=== PATIENT | male | born 1960 | race Caucasian/White ===

== ENCOUNTER → 2016-11-03 | Outpatient (CLI) | payer MEDICARE, OTHER ==
--- NOTE | 2016-11-03 12:29 | FL ---
EXAMINATION TYPE: FL barium swallow w video DATE OF EXAM: 11/03/2016 11:27 AM COMPARISON: NONE HISTORY: Cough, pneumonia. The patient was evaluated in the lateral projection during real-time fluoroscopy, during ingestion of barium mixed with solids and liquids. Some residuals noted at the level of the vallecula. No aspirat ion or laryngeal penetration. See report from speech pathology.
== END | disposition home or self-care (01) ==
LOC: RADFLMAIN 10:54
PROVIDERS: ATTEND Family Medicine
DX: R05 Cough (principal); J31.0 Chronic rhinitis
CPT/HCPCS: 74230

== ENCOUNTER 2017-07-10 16:23 | Emergency (ER) | payer MEDICARE, OTHER ==
[2017-07-10 16:38] VITALS: TEMP 98.5
--- NOTE | 2017-07-10 17:57 | ED ---
Nausea/Vomiting/Diarrhea HPI - General Chief complaint: Nausea/Vomiting/Diarrhea Stated complaint: Vomiting After Anesthesia Time Seen by Provider: 07/10/17 17:12 Source: Caregiver Mode of arrival: wheelchair - History of Present Illness Initial comments: 56-year-old male patient with past history significant for developmental disability, diabetes, and high blood pressure is brought in by caregiver for evaluation of frequent vomiting since having a dental procedure done last week. Patient lives in an assisted living facility. She states that he had gum surgery related to an infection, and was placed on ibuprofen and Cleocin for pain and antibiotic coverage. He states that over the first few days he had a lot of vomiting. She states that the vomiting has been intermittent since then , and has had days where he has been vomit free. She states that he has been doing a soft liquid diet. She states that he will not let them look in his mouth. States that he is also been coughing. She states that his primary physician has been in to evaluate him, did do a chest x-ray and found a new onset acute congestive heart failure. States that they did start him on Lasix. She states that today and yesterday he has been refusing to eat. She states that he has not urinated since this morning. Says that he did have some constipation however did have a large bowel movement yesterday morning. She denies any fever or chills. States his oxygen levels at the facility have been 97 or above. States his blood sugar has been normal for him, some elevation around dinner time. He has not had any labs done. States that otherwise he is behaving normally. Unable to perform complete review of systems due to patient being non-verbal. - Related Data Home Medications Medication Instructions Recorded Confirmed Clotrimazole Cream [Lotrimin Cream] 1 applic TOPICAL HS 07/10/17 07/10/17 Fexofenadine HCl [Ladonna Allergy] 180 mg PO HS 07/10/17 07/10/17 Furosemide [Lasix] 20 mg PO DAILY 07/10/17 07/10/17 Insulin Aspart [NovoLOG] 6 unit SQ AC-LUNCH 07/10/17 07/10/17 Insulin Aspart [NovoLOG] 7 unit SQ AC-BRKFST 07/10/17 07/10/17 Insulin Aspart [NovoLOG] 10 unit SQ AC-SUPPER 07/10/17 07/10/17 Insulin Glargine [Lantus] 8 unit SQ HS 07/10/17 07/10/17 Losartan Potassium [Cozaar] 100 mg PO HS 07/10/17 07/10/17 Ondansetron Odt [Zofran Odt] 4 mg PO Q8H PRN 07/10/17 07/10/17 tiZANidine HCL [Zanaflex] 4 mg PO Q6H PRN 07/10/17 07/10/17 Previous Rx's Medication Instructions Recorded Bisacodyl [Dulcolax] 10 mg RECTAL HS #3 supp 07/10/17 Polyethylene Glycol 3350 [Miralax] 17 gm PO DAILY #527 gm 07/10/17 Allergies Allergy/AdvReac Type Severity Reaction Status Date / Time ergocalciferol (vitamin D2) Allergy Unknown Verified 07/10/17 17:41 [From Vitamin D2] penicillin V [From Veetids] Allergy Unknown Verified 07/10/17 17:41 Review of Systems ROS Statement: Those systems with pertinent positive or pertinent negative responses have been documented in the HPI. ROS Other: All systems not noted in ROS Statement are negative. Past Medical History Past Medical History: Heart Failure, Diabetes Mellitus, Hypertension History of Any Multi-Drug Resistant Organisms: None Reported Past Psychological History: No Psychological Hx Reported Smoking Status: Never smoker Past Alcohol Use History: None Reported Past Drug Use History: None Reported General Exam General appearance: alert, in no apparent distress, other (This is a well- developed, well-nourished adult male patient, does not appear to be in any acute distress. Vital signs upon presentation are temperature 98.5F, pulse 90 , respirations 16, blood pressure 170/70, pulse ox 93% on room air.) Eye exam: Present: normal appearance, PERRL, EOMI. Absent: scleral icterus, conjunctival injection, periorbital swelling ENT exam: Present: normal exam, normal oropharynx, mucous membranes moist Respiratory exam: Present: normal lung sounds bilaterally. Absent: respiratory distress, wheezes, rales, rhonchi, stridor Cardiovascular Exam: Present: regular rate, normal rhythm, normal heart sounds. Absent: systolic murmur, diastolic murmur, rubs, gallop, clicks GI/Abdominal exam: Present: soft, normal bowel sounds. Absent: distended, tenderness, guarding, rebound, rigid Extremities exam: Present: normal inspection, full ROM, normal capillary refill , pedal edema (Pedal and ankle swelling, 1+ pitting.). Absent: tenderness, joint swelling, calf tenderness Neurological exam: Present: alert, CN II-XII intact, other (Nonverbal). Absent : oriented X3 Skin exam: Present: warm, dry, intact, normal color. Absent: rash Course Vital Signs 07/10/17 07/10/17 16:34 18:54 Temperature 98.5 F Pulse Rate 90 99 Respiratory 16 18 Rate Blood Pressure 170/70 165/86 O2 Sat by Pulse 93 L 95 Oximetry - Reevaluation(s) Reevaluation #1: 07/10/17 19:45 X-ray did show rectal stool burden, constipation. We will administer enema here and reevaluate. Medical Decision Making - Medical Decision Making 56-year-old male patient presents for evaluation of intermittent vomiting for a week. Labs reviewed and were unremarkable. Patient did have a slightly elevated BUN, he was given 500 mL of normal saline for this in the emergency department. There is also some concern for heart failure as he did have a abnormal chest x-ray 2 days ago from his primary care physician. BNP here was 45. Chest x-ray was negative for any vascular congestion or effusion. KUB of the abdomen did show retained stool in the rectum, and did suggest constipation. We did give an enema here in the department, patient did have a small bowel movement. He will be discharged home with a prescription for MiraLAX, and a Dulcolax suppository. He does have Zofran for nausea, they're encouraged to continue this, and start giving him small amounts of clear liquids. They're instructed to follow-up with primary care physician for recheck in 1-2 days. Instructed to return here immediately for any new, worsening, or concerning symptoms. Caregiver verbalizes understanding and agree with this plan. - Lab Data Result diagrams: 07/10/17 17:48 07/10/17 17:48 Lab Results 07/10/17 07/10/17 07/10/17 Range/Units 17:48 17:48 17:48 WBC 9.2 (3.8-10.6) k/uL RBC 4.92 (4.30-5.90) m/uL Hgb 15.3 (13.0-17.5) gm/dL Hct 46.0 (39.0-53.0) % MCV 93.4 (80.0-100.0) fL MCH 31.0 (25.0-35.0) pg MCHC 33.2 (31.0-37.0) g/dL RDW 12.7 (11.5-15.5) % Plt Count 423 (150-450) k/uL Neutrophils % 74 % Lymphocytes % 14 % Monocytes % 9 % Eosinophils % 1 % Basophils % 0 % Neutrophils # 6.8 (1.3-7.7) k/uL Lymphocytes # 1.3 (1.0-4.8) k/uL Monocytes # 0.8 (0-1.0) k/uL Eosinophils # 0.1 (0-0.7) k/uL Basophils # 0.0 (0-0.2) k/uL Sodium 144 (137-145) mmol/L Potassium 4.1 (3.5-5.1) mmol/L Chloride 99 (98-107) mmol/L Carbon Dioxide 33 H (22-30) mmol/L Anion Gap 12 mmol/L BUN 36 H (9-20) mg/dL Creatinine 0.60 L (0.66-1.25) mg/dL Est GFR (MDRD) Af Amer >60 (>60 ml/min/1.73 sqM) Est GFR (MDRD) Non-Af >60 (>60 ml/min/1.73 sqM) Glucose 77 (74-99) mg/dL Calcium 9.4 (8.4-10.2) mg/dL Total Bilirubin 0.6 (0.2-1.3) mg/dL AST 25 (17-59) U/L ALT 43 (21-72) U/L Alkaline Phosphatase 100 (38-126) U/L Total Creatine Kinase 188 H (55-170) U/L CK-MB (CK-2) 2.6 H* (0.0-2.4) ng/mL CK-MB (CK-2) Rel Index 1.4 NT-Pro-B Natriuret Pep pg/mL Total Protein 6.4 (6.3-8.2) g/dL Albumin 3.5 (3.5-5.0) g/dL 07/10/17 Range/Units 17:48 WBC (3.8-10.6) k/uL RBC (4.30-5.90) m/uL Hgb (13.0-17.5) gm/dL Hct (39.0-53.0) % MCV (80.0-100.0) fL MCH (25.0-35.0) pg MCHC (31.0-37.0) g/dL RDW (11.5-15.5) % Plt Count (150-450) k/uL Neutrophils % % Lymphocytes % % Monocytes % % Eosinophils % % Basophils % % Neutrophils # (1.3-7.7) k/uL Lymphocytes # (1.0-4.8) k/uL Monocytes # (0-1.0) k/uL Eosinophils # (0-0.7) k/uL Basophils # (0-0.2) k/uL Sodium (137-145) mmol/L Potassium (3.5-5.1) mmol/L Chloride (98-107) mmol/L Carbon Dioxide (22-30) mmol/L Anion Gap mmol/L BUN (9-20) mg/dL Creatinine (0.66-1.25) mg/dL Est GFR (MDRD) Af Amer (>60 ml/min/1.73 sqM) Est GFR (MDRD) Non-Af (>60 ml/min/1.73 sqM) Glucose (74-99) mg/dL Calcium (8.4-10.2) mg/dL Total Bilirubin (0.2-1.3) mg/dL AST (17-59) U/L ALT (21-72) U/L Alkaline Phosphatase (38-126) U/L Total Creatine Kinase (55-170) U/L CK-MB (CK-2) (0.0-2.4) ng/mL CK-MB (CK-2) Rel Index NT-Pro-B Natriuret Pep 35 pg/mL Total Protein (6.3-8.2) g/dL Albumin (3.5-5.0) g/dL 07/10/17 19:52 EKG obtained at 1756 shows normal sinus rhythm with a nonspecific T-wave abnormality, ventricular rate is 98, UT interval 126, Q baptist 74, QT 308, QTC 393. No evidence of ST elevation or depression. There is extensive artifact throughout the read. - Radiology Data Radiology results: report reviewed, image reviewed 2 views of the abdomen show no sign of intestinal obstruction or pneumoperitoneum. There is retained fecal material in the rectum. There is interposition of the hepatic flexure of the colon which is normal normal variant. There is mild lumbar levoscoliosis. There are no pathologic calcifications over the kidneys. Impression by Dr. Lopez shows nonacute abdomen. Constipation. Two-view x-ray of the chest shows there is no heart failure no confluent pneumonic infiltrate. There is poor separation. There is mild thoracic kyphotic curvature. There is no pleural effusion. Impression by Dr. Lopez shows suboptimal inspiration. No active cardiopulmonary disease. Disposition Clinical Impression: Nausea & vomiting Disposition: HOME SELF-CARE Condition: Good Instructions: Acute Nausea and Vomiting (ED) Additional Instructions: Take medication as directed. Stop Lasix until follow up with PCP. Follow-up with primary care physician for recheck in 1-2 days. Return here immediately for any new, worsening, or concerning symptoms. Prescriptions: Bisacodyl [Dulcolax] 10 mg RECTAL HS #3 supp Polyethylene Glycol 3350 [Miralax] 17 gm PO DAILY #527 gm Referrals: Nacho Miller MD [Primary Care Provider] - 1-2 days Time of Disposition: 19:55
[2017-07-10 18:05] LABS: Basophils % (A) 0 %; CH 30.4; CHCM 32.7; Eosinophils # (A) 0.1 k/uL (0-0.7); Eosinophils % (A) 1 %; HDW 2.57; HGB 15.3 gm/dL (13.0-17.5); Luc # (Auto) 0.16; Luc % (Auto) 2; Lymphocytes # (A) 1.3 k/uL (1.0-4.8); Lymphocytes % (A) 14 %; MCHC 33.2 g/dL (31.0-37.0); MCV 93.4 fL (80.0-100.0); Mean Platelet Volume 6.5; Monocytes # (A) 0.8 k/uL (0-1.0); Monocytes % (A) 9 %; Neutrophils # (A) 6.8 k/uL (1.3-7.7); Neutrophils % (A) 74 %; RBC 4.92 m/uL (4.30-5.90); RDW 12.7 % (11.5-15.5); WBC 9.2 k/uL (3.8-10.6); WBC (Perox) 8.56
[2017-07-10 18:13] LABS: ALT 43 U/L (21-72); AST 25 U/L (17-59); Alkaline Phosphatase 100 U/L (38-126); Anion Gap 12 mmol/L; Blood Urea Nitrogen 36 mg/dL (9-20); Calcium 9.4 mg/dL (8.4-10.2); Carbon Dioxide 33 mmol/L (22-30); Chloride 99 mmol/L (98-107); Glucose 77 mg/dL (74-99); Non-African American GFR(MDRD) >60 (>60 ml/min/1.73 sqM); Potassium 4.1 mmol/L (3.5-5.1); Sodium 144 mmol/L (137-145); Total Bilirubin 0.6 mg/dL (0.2-1.3); Total Protein 6.4 g/dL (6.3-8.2)
[2017-07-10 18:37] LABS: Creatine Kinase MB 2.6 ng/mL (0.0-2.4)
--- NOTE | 2017-07-10 18:39 | XR ---
EXAMINATION TYPE: XR chest 2V DATE OF EXAM: 07/10/2017 COMPARISON: NONE HISTORY: Vomiting TECHNIQUE: Frontal and lateral views of the chest are obtained. FINDINGS: There is no heart failure nor confluent pneumonic infiltrate. There is poor separation. Th ere is mild thoracic kyphotic curvature. There is no pleural effusion. IMPRESSION: Suboptimal inspiration. No active cardiopulmonary disease.
--- NOTE | 2017-07-10 18:40 | XR ---
EXAMINATION TYPE: XR KUB DATE OF EXAM: 07/10/2017 COMPARISON: NONE HISTORY: Vomiting TECHNIQUE: 2 views FINDINGS: There is no sign of intestinal obstruction or pneumoperitoneum. There is retained fecal mat erial in the rectum. There is interposition of the hepatic flexure of the colon which is a normal freddy iant. There is mild lumbar levoscoliosis. There are no pathologic calcifications over the kidneys. IMPRESSION: Nonacute abdomen. Constipation.
[2017-07-10] MEDS ORDERED: SODIUM CHLORIDE 0.9% 500 ML IV ONE (18:41)
[2017-07-10 20:34] VITALS: BP 174/82; PULSE 95; RESP 16
== END 2017-07-10 20:34 | disposition home or self-care (01) ==
LOC: EC 16:23 → EEVIPCON 16:23 → EC 20:34
DX: R11.2 Nausea with vomiting, unspecified (principal); R05 Cough; K59.00 Constipation, unspecified; M41.86 Other forms of scoliosis, lumbar region; R79.89 Other specified abnormal findings of blood chemistry; R60.0 Localized edema; M79.89 Other specified soft tissue disorders; I11.0 Hypertensive heart disease with heart failure; I50.9 Heart failure, unspecified; E11.9 Type 2 diabetes mellitus without complications; Z79.4 Long term (current) use of insulin; Z79.899 Other long term (current) drug therapy; Z88.0 Allergy status to penicillin; Z88.8 Allergy status to other drugs, medicaments and biological substances
CPT/HCPCS: 36415; 71020; 74000; 80053; 82550; 82553; 83880; 85025; 93005; 96360; 99284

== ENCOUNTER 2017-08-01 15:00 | Emergency (ER) | payer MEDICARE, OTHER ==
[2017-08-01 15:09] VITALS: RESP 18; TEMP 97.7
[2017-08-01] MEDS ORDERED: ONDANSETRON 4 MG/2 ML VIAL IVP STA (15:35)
[2017-08-01] MEDS ORDERED: PANTOPRAZOLE 40 MG/10 ML VIAL IVP STA (15:35)
--- NOTE | 2017-08-01 15:53 | ED ---
General Adult HPI - General Chief complaint: Nausea/Vomiting/Diarrhea Stated complaint: Vomiting Time Seen by Provider: 08/01/17 15:11 Source: EMS, RN notes reviewed, old records reviewed Mode of arrival: EMS Limitations: altered mental status - History of Present Illness Initial comments: This is a 48-year-old male to the ER today for evaluate him for evaluation of possible at vital signs. Nausea, vomiting. Patient is nonverbal and is unable to understand conversation. Patient is a paraplegic. Patient is just discharged from the hospital after 1 month hospital stay. Patient is coming today with care provider who states patient has had low-grade fever over the last day and had some vomiting. But was urged that for the nurse to come to the hospital. History is otherwise obtained from patient's chart and EMS - Related Data Home Medications Medication Instructions Recorded Confirmed Clotrimazole Cream [Lotrimin Cream] 1 applic TOPICAL HS 07/10/17 08/01/17 Losartan Potassium 50 mg PO HS 08/01/17 08/01/17 Previous Rx's Medication Instructions Recorded Polyethylene Glycol 3350 [Miralax] 17 gm PO DAILY #527 gm 07/10/17 Insulin Glargine [Lantus] 46 unit SQ HS #1 vial 07/31/17 Allergies Allergy/AdvReac Type Severity Reaction Status Date / Time penicillin V [From Veetids] Allergy Unknown Verified 08/01/17 15:31 ergocalciferol (vitamin D2) AdvReac Nausea Verified 08/01/17 15:31 [From Vitamin D2] Review of Systems ROS Statement: Those systems with pertinent positive or pertinent negative responses have been documented in the HPI. ROS Other: All systems not noted in ROS Statement are negative. Past Medical History Past Medical History: Heart Failure, Diabetes Mellitus, Hypertension Additional Past Medical History / Comment(s): Constipation History of Any Multi-Drug Resistant Organisms: None Reported Past Surgical History: Orthopedic Surgery Additional Past Surgical History / Comment(s): Dental surgery Past Psychological History: No Psychological Hx Reported Smoking Status: Never smoker Past Alcohol Use History: None Reported Past Drug Use History: None Reported - Past Family History Mother Family Medical History: Dementia General Exam Limitations: altered mental status General appearance: alert, in no apparent distress Head exam: Present: atraumatic, normocephalic, normal inspection Eye exam: Present: normal appearance, PERRL, EOMI. Absent: scleral icterus, conjunctival injection, periorbital swelling ENT exam: Present: normal exam, mucous membranes moist Neck exam: Present: normal inspection. Absent: tenderness, meningismus, lymphadenopathy Respiratory exam: Present: normal lung sounds bilaterally. Absent: respiratory distress, wheezes, rales, rhonchi, stridor Cardiovascular Exam: Present: regular rate, normal rhythm, normal heart sounds. Absent: systolic murmur, diastolic murmur, rubs, gallop, clicks GI/Abdominal exam: Present: soft, normal bowel sounds. Absent: distended, tenderness, guarding, rebound, rigid Extremities exam: Present: normal inspection, full ROM, normal capillary refill. Absent: tenderness, pedal edema, joint swelling, calf tenderness Back exam: Present: normal inspection Neurological exam: Present: alert, oriented X3, CN II-XII intact Psychiatric exam: Present: normal affect, normal mood Skin exam: Present: warm, dry, intact, normal color. Absent: rash Course Vital Signs 08/01/17 15:04 Temperature 97.7 F Pulse Rate 106 H Respiratory 18 Rate Blood Pressure 163/83 O2 Sat by Pulse 96 Oximetry - Reevaluation(s) Reevaluation #1: 08/01/17 15:[address] Giullermo, Dr. Vicente to care patient for last month and states that this point there is no further treatment that they can provide. Medical Decision Making - Medical Decision Making 56 male the ER for evaluation of acute on chronic issue, chronic debility. Nausea vomiting. Patient given nausea medication here in the emergency room. Patient will be discharged back to facility. Vital signs are stable and normal here in the ER Disposition Clinical Impression: Nausea & vomiting Disposition: HOME SELF-CARE Condition: Good Instructions: Acute Nausea and Vomiting (ED) Referrals: Nacho Miller MD [Primary Care Provider] - 1-2 days
[2017-08-01] MEDS ORDERED: METOCLOPRAMIDE 5 MG/ML 2 ML VIAL IVP STA (16:35)
[2017-08-01] MEDS ORDERED: diphenhydrAMINE 50 MG/ML 1 ML VIAL IVP STA (16:35)
[2017-08-01 16:55] LABS: Glucose,Whole Blood 308 mg/dL (75-99)
[2017-08-01 17:50] VITALS: BP 180/92; PULSE 102
== END 2017-08-01 19:02 | disposition home or self-care (01) ==
LOC: EC 15:00
DX: R11.2 Nausea with vomiting, unspecified (principal); I10 Essential (primary) hypertension; Z88.0 Allergy status to penicillin; Z88.8 Allergy status to other drugs, medicaments and biological substances; Z79.899 Other long term (current) drug therapy
CPT/HCPCS: 36415; 99285; 96374; 96375 ×3; J1200; J2765; J2405; C9113